=== PATIENT | female | born 1980 | race Caucasian/White ===

== ENCOUNTER 2019-08-28 22:45 | Emergency (ER) | payer OTHER, SELFPAY | END 2019-08-28 23:20 | disposition home or self-care (01) | LOC: ERS 22:45 | DX: S61.254A Open bite of right ring finger without damage to nail, initial encounter (principal); S61.214A Laceration without foreign body of right ring finger without damage to nail, initial encounter; W54.0XXA Bitten by dog, initial encounter | CPT/HCPCS: 99283 ==